=== PATIENT | male | born 1950 | race Caucasian/White ===

== ENCOUNTER → 2017-01-16 | Outpatient (CLI) | payer BC ==
[~2017-01-16] MED LIST: DIABETIC MED; LISINOPRIL2.5 MG
== END ==
LOC: RAD 12:25
DX: M54.5 Low back pain (principal); M51.36 Other intervertebral disc degeneration, lumbar region

== ENCOUNTER → 2017-03-12 | Outpatient (CLI) | payer BC ==
[2013-03-02 11:33] VITALS: BP 124/67
== END ==
LOC: LAB 06:58
DX: I10 Essential (primary) hypertension (principal); E11.9 Type 2 diabetes mellitus without complications; Z86.39 Personal history of other endocrine, nutritional and metabolic disease

== ENCOUNTER → 2017-08-26 | Outpatient (CLI) | payer BC ==
[2013-03-02 11:33] VITALS: BP 124/67
== END ==
LOC: LAB 08:03
DX: E11.9 Type 2 diabetes mellitus without complications (principal)

== ENCOUNTER → 2018-02-26 | Outpatient (CLI) | payer BC ==
[2013-03-02 11:33] VITALS: BP 124/67
== END ==
LOC: LAB 08:19
PROVIDERS: Family Medicine
DX: E11.9 Type 2 diabetes mellitus without complications (principal); Z12.5 Encounter for screening for malignant neoplasm of prostate

== ENCOUNTER → 2018-09-02 | Outpatient (CLI) | payer BC ==
[2013-03-02 11:33] VITALS: BP 124/67
[2018-09-02 08:34] LABS: ALBUMIN 4.5 g/dL (3.5-5.0); CALCIUM 9.5 mg/dL (8.4-10.2); POTASSIUM 4.6 mmol/L (3.6-5.0); TOTAL BILIRUBIN 0.7 mg/dL (0.2-1.3); TOTAL PROTEIN 7.8 g/dL (6.3-8.2)
== END ==
LOC: LAB 07:44
PROVIDERS: Family Medicine
DX: E11.9 Type 2 diabetes mellitus without complications (principal)

== ENCOUNTER 2022-02-24 18:24 | Emergency (ER) | payer MEDICARE, BC ==
[~2022-02-24] VITALS: Ht 177.8 cm; Wt 110.0 kg
[~2022-02-24 18:24] MED LIST changes: -LISINOPRIL2.5 MG; +LISINOPRIL2.5 MG PO
[2022-02-24] MEDS ORDERED: RYBELSUS7 MG PO (18:34)
[2022-02-24] MEDS ORDERED: GABAPENTIN400 M2 PO (18:34)
[2022-02-24] MEDS ORDERED: GLIPIZIDE10 M2 PO (18:35)
[2022-02-24] MEDS ORDERED: FLOMAX0.4 MG PO (18:35)
[2022-02-24] MEDS ORDERED: OMEPRAZOLE40 MG PO (18:35)
[2022-02-24] MEDS ORDERED: JARDIANCE25 MG PO (18:35)
[2022-02-24] MEDS ORDERED: VENLAFAXINE HCL75 M3 PO (18:35)
[2022-02-24] MEDS ORDERED: METFORMIN HYD1000 MG PO (18:36)
[2022-02-24] MEDS ORDERED: OTEZLA30 MG PO (18:50)
[2022-02-24 19:23] VITALS: BP 112/82
[2022-02-24] MEDS ORDERED: CEPHALEXIN500 M1 PO (19:39)
[2022-02-24] MEDS ORDERED: NORCO 325 MG-51 TA1 PO ×2 (19:39→19:41)
== END 2022-02-24 19:48 | disposition home or self-care (01) ==
LOC: ED 18:24
DX: S61.112A Laceration without foreign body of left thumb with damage to nail, initial encounter (principal); Z23 Encounter for immunization; W29.8XXA Contact with other powered hand tools and household machinery, initial encounter
CPT/HCPCS: 90715